=== PATIENT | male | born 1945 | race Caucasian/White ===

== ENCOUNTER 2018-12-17 06:26 | Inpatient (IN) | payer MEDICARE, MEDICAID ==
[~2018-12-17] VITALS: Ht 157.5 cm; Wt 71.7 kg
[2018-12-17] MEDS ORDERED: ACETAMINOPHEN 325MG TABLET PO STA (07:16)
[2018-12-17] MEDS ORDERED: SODIUM CHLORIDE 0.9% 1000ML BAG (SEPSIS BOLUS) IV ONE (07:30)
[2018-12-17 09:41] LABS: BASOPHILS % 0.2 % (0.0-2.0); HEMATOCRIT. 33.7 % (42.0-52.0); HEMOGLOBIN. 11.8 g/dL (14.0-18.0); LYMPHOCYTES % 10.1 % (20.0-50.0); MEAN CORPUSCULAR HEMOGLOBIN 30.9 pg (28.0-32.0); MEAN CORPUSCULAR VOLUME 88.3 fL (80.0-94.0); MEAN PLATELET VOLUME 8.6 fl (7.4-10.4); MONOCYTES % 10.1 % (2.0-8.0); NEUTROPHILS % 79.6 % (40.0-76.0); PLATELET 204 x1000/uL (130-400); RED BLOOD CELL COUNT 3.81 mill/uL (4.7-6.1); RED CELL DISTRIBUTION WIDTH 13.4 % (11.6-14.6)
[2018-12-17 09:47] LABS: CHLORIDE 104 mEq/L (98-107)
[2018-12-17 09:49] LABS: INR 1.1; PROTHROMBIN TIME 11.2 sec (9.6-11.0)
[2018-12-17] MEDS ORDERED: PIPERACILLIN/TAZ 3.375G PREMIX 50 ML IV ONE (10:30)
[2018-12-17] MEDS ORDERED: VANCOMYCIN 1 G PREMIX 200 ML IV ONE (10:30)
[2018-12-17 11:04] LABS: CLARITY URINE CLEAR (CLEAR); COLOR URINE YELLOW (YELLOW); KETONES URINE NEGATIVE (NEGATIVE); LEUKOCYTE ESTERASE URINE 1+ (NEGATIVE); NITRITE URINE NEGATIVE (NEGATIVE); OCCULT BLOOD URINE 1+ (NEGATIVE); PROTEIN URINE 1+ (NEGATIVE); SPECIFIC GRAVITY URINE 1.009 (1.005-1.030)
[2018-12-17 16:28] VITALS: BP 178/88
[2018-12-17] MEDS ORDERED: DEXT 5%/0.45% NACL 1000ML 1,000 ML IV SCH (17:30)
[2018-12-17] MEDS: ACETAMINOPHEN 325MG TABLET PO PRN (17:49)
[2018-12-17 18:38] VITALS: BP 178/88
[2018-12-17] MEDS ORDERED: CIPR500T25 MT (19:10)
[2018-12-17] MEDS ORDERED: BECL10.62 INH (19:10)
[2018-12-17] MEDS ORDERED: PROSOL IH (19:10)
[2018-12-17] MEDS ORDERED: IPRA4AER INH (19:10)
[2018-12-17] MEDS ORDERED: INFLUENZA VIRUS VACCINE(AFLURIA) 0.5ML SYR IM ONE (19:30)
[2018-12-17 20:00] VITALS: BP 113/54
[2018-12-18] VITALS: BP 138/71
[2018-12-18] MEDS ORDERED: ONDANSETRON HCL 4MG/2ML INJ IV PRN (01:30)
[2018-12-18] MEDS ORDERED: MAGNESIUM/ALUMINUM HYDROXIDE/SIMETHICONE 30ML UDC PO PRN (01:30)
[2018-12-18] MEDS ORDERED: ACETAMINOPHEN 325MG TABLET PO PRN (01:30)
[2018-12-18] MEDS ORDERED: IPRATROPIUM/ALBUTEROL 0.5-3(2.5)MG/3ML NEB HHN PRN (01:30)
[2018-12-18] MEDS ORDERED: DIPHENHYDRAMINE 50MG/ML VIAL IV PRN (01:30)
[2018-12-18] MEDS ORDERED: CLONIDINE 0.1MG TABLET PO PRN (01:45)
[2018-12-18] MEDS: SODIUM CHLORIDE 0.9% 1,000 ML IV SCH ×2 (02:05→21:34)
[2018-12-18 04:00] VITALS: BP 152/89
[2018-12-18] MEDS: LEVOFLOXACIN 500MG PREMIX 100 ML IV SCH (04:11)
[2018-12-18] MEDS: ACETAMINOPHEN 325MG TABLET PO PRN ×3 (04:31→17:11)
[2018-12-18 07:29] LABS: BASOPHILS % 0.3 % (0.0-2.0); EOSINOPHILS % 0.1 % (0.0-5.0); HEMATOCRIT. 35.5 % (42.0-52.0); HEMOGLOBIN. 12.4 g/dL (14.0-18.0); LYMPHOCYTES % 8.3 % (20.0-50.0); MEAN CORPUSCULAR HEMOGLOBIN 30.9 pg (28.0-32.0); MEAN CORPUSCULAR VOLUME 88.5 fL (80.0-94.0); MEAN PLATELET VOLUME 9.5 fl (7.4-10.4); NEUTROPHILS % 82.3 % (40.0-76.0); PLATELET 216 x1000/uL (130-400); RED BLOOD CELL COUNT 4.02 mill/uL (4.7-6.1); RED CELL DISTRIBUTION WIDTH 13.2 % (11.6-14.6)
[2018-12-18 07:37] LABS: CHLORIDE 106 mEq/L (98-107)
[2018-12-18 08:00] VITALS: BP 136/76
[2018-12-18] MEDS: GUAIFENESIN 200MG/10ML SUGAR FREE UDC PO PRN ×2 (08:51→17:13)
[2018-12-18] MEDS: FAMOTIDINE 20MG TABLET PO SCH ×2 (08:52→21:33)
[2018-12-18] MEDS: ENOXAPARIN 40MG/0.4ML SYR SUBCUT SCH (08:52)
[2018-12-18 12:00] VITALS: BP 137/67
[2018-12-18 16:00] VITALS: BP 154/87
[2018-12-18] MEDS: TAMSULOSIN HCL 0.4MG SR CAPSULE PO SCH (17:11)
[2018-12-18 20:00] VITALS: BP 123/68
[2018-12-19] VITALS: BP 154/77
[2018-12-19 04:00] VITALS: BP 140/74
[2018-12-19] MEDS: ACETAMINOPHEN 325MG TABLET PO PRN ×2 (04:48→21:54)
[2018-12-19 08:00] VITALS: BP 118/73
[2018-12-19] MEDS: ENOXAPARIN 40MG/0.4ML SYR SUBCUT SCH (08:36)
[2018-12-19] MEDS: LEVOFLOXACIN 500MG PREMIX 100 ML IV SCH (08:40)
[2018-12-19] MEDS: TAMSULOSIN HCL 0.4MG SR CAPSULE PO SCH (08:40)
[2018-12-19] MEDS: FAMOTIDINE 20MG TABLET PO SCH ×2 (08:40→21:53)
[2018-12-19 12:00] VITALS: BP 142/78
[2018-12-19 16:30] VITALS: BP 154/78
[2018-12-19] MEDS: CEFEPIME 1,000 MG in DEXTROSE 5% WATER 50 ML IV SCH (16:59)
[2018-12-19] MEDS: SODIUM CHLORIDE 0.9% 1,000 ML IV SCH (17:00)
[2018-12-19 20:00] VITALS: BP 132/78
[2018-12-20] VITALS: BP 139/72
[2018-12-20 04:00] VITALS: BP 148/86
[2018-12-20] MEDS: CEFEPIME 1,000 MG in DEXTROSE 5% WATER 50 ML IV SCH (05:28)
[2018-12-20] MEDS: SODIUM CHLORIDE 0.9% 1,000 ML IV SCH (05:29)
[2018-12-20 08:00] VITALS: BP 153/78
[2018-12-20] MEDS: FAMOTIDINE 20MG TABLET PO SCH ×2 (09:20→21:26)
[2018-12-20] MEDS: ENOXAPARIN 40MG/0.4ML SYR SUBCUT SCH (09:21)
[2018-12-20] MEDS: ACETAMINOPHEN 325MG TABLET PO PRN ×2 (09:21→21:26)
[2018-12-20] MEDS: TAMSULOSIN HCL 0.4MG SR CAPSULE PO SCH (09:24)
[2018-12-20] MEDS: AMIKACIN 500MG in SODIUM CHLORIDE 0.9% 100ML IV SCH (11:19)
[2018-12-20 20:00] VITALS: BP 142/79
[2018-12-21] VITALS: BP 138/78
[2018-12-21 04:00] VITALS: BP 149/71
[2018-12-21 08:00] VITALS: BP 141/77
[2018-12-21] MEDS: TAMSULOSIN HCL 0.4MG SR CAPSULE PO SCH (08:48)
[2018-12-21] MEDS: FAMOTIDINE 20MG TABLET PO SCH (08:49)
[2018-12-21] MEDS: ENOXAPARIN 40MG/0.4ML SYR SUBCUT SCH (08:49)
[2018-12-21] MEDS: AMIKACIN 500MG in SODIUM CHLORIDE 0.9% 100ML IV SCH (11:23)
[2018-12-21 14:27] LABS: CHLORIDE 108 mEq/L (98-107)
== END 2018-12-21 18:00 | disposition home or self-care (01) | DRG 871 ==
LOC: ER 06:26 → 7WST 10:52 → EDBEDREQTM 10:56 → EDBEDREQSVC 10:56 → EDBEDREQ 10:56 → ENRESERV 14:44
PROVIDERS: ADMIT Internal Medicine; ATTEND Internal Medicine
DX: A41.9 Sepsis, unspecified organism (principal); E43 Unspecified severe protein-calorie malnutrition; N39.0 Urinary tract infection, site not specified; N40.0 Benign prostatic hyperplasia without lower urinary tract symptoms; J45.909 Unspecified asthma, uncomplicated; B96.20 Unspecified Escherichia coli [E. coli] as the cause of diseases classified elsewhere; I10 Essential (primary) hypertension; Z83.3 Family history of diabetes mellitus
CPT/HCPCS: 36415; 71045; 80048; 81003; 83605; 84145; 84484; 87077; 87186; 87804; 90686; 93005; 96365; 99291; J0278; J0692; J1650; J1956; J2543; J3370; J7030; J7050; J7060

== ENCOUNTER → 2019-04-17 | Emergency (ER) | payer MEDICARE, MEDICAID ==
[~2019-04-17] VITALS: Ht 165.1 cm; Wt 75.0 kg
[~2019-04-17] MED LIST: BECL10.62 INH; CEFTRIAXONE SODIUM 1 G/VIAL IM NR; CIPR500T25 MT; IPRA4AER INH; PROSOL IH
[2019-04-17 16:44] LABS: CHLORIDE 108 mEq/L (98-107)
[2019-04-17 17:44] LABS: CLARITY URINE CLOUDY (CLEAR); COLOR URINE DARK YELLOW (YELLOW); KETONES URINE TRACE (NEGATIVE); LEUKOCYTE ESTERASE URINE 3+ (NEGATIVE); NITRITE URINE POSITIVE (NEGATIVE); OCCULT BLOOD URINE 2+ (NEGATIVE); PH URINE 5.5 (4.5-8.0); PROTEIN URINE 1+ (NEGATIVE); SPECIFIC GRAVITY URINE 1.014 (1.005-1.030)
[2019-04-17 19:39] VITALS: BP 129/70
== END | disposition home or self-care (01) ==
LOC: ER 12:40
DX: N39.0 Urinary tract infection, site not specified (principal); R33.9 Retention of urine, unspecified; J45.909 Unspecified asthma, uncomplicated
CPT/HCPCS: 36415; 80053; 81003; 87077; 87086; 87186; 96372; 99285; J0696

== ENCOUNTER 2019-10-11 05:53 | Emergency (ER) | payer MEDICARE, MEDICAID ==
[~2019-10-11] VITALS: Ht 167.6 cm; Wt 87.0 kg
[~2019-10-11 05:53] MED LIST changes: -CEFTRIAXONE SODIUM 1 G/VIAL IM NR
[2019-10-11 07:08] LABS: CLARITY URINE CLEAR (CLEAR); COLOR URINE YELLOW (YELLOW); KETONES URINE NEGATIVE (NEGATIVE); LEUKOCYTE ESTERASE URINE 3+ (NEGATIVE); NITRITE URINE NEGATIVE (NEGATIVE); OCCULT BLOOD URINE TRACE (NEGATIVE); PROTEIN URINE NEGATIVE (NEGATIVE); SPECIFIC GRAVITY URINE 1.007 (1.005-1.030)
[2019-10-11 08:25] VITALS: BP 116/69
== END 2019-10-11 08:33 | disposition home or self-care (01) ==
LOC: ER 06:11
DX: N39.0 Urinary tract infection, site not specified (principal); R33.9 Retention of urine, unspecified; J45.909 Unspecified asthma, uncomplicated; E11.9 Type 2 diabetes mellitus without complications; I10 Essential (primary) hypertension
CPT/HCPCS: 81003; 87077; 87186; 93005; 99284

== ENCOUNTER 2019-12-06 11:34 | Emergency (ER) | payer MEDICARE, MEDICAID ==
[~2019-12-06] VITALS: Ht 172.7 cm; Wt 77.0 kg
[2019-12-06 15:08] LABS: CLARITY URINE CLOUDY (CLEAR); COLOR URINE YELLOW (YELLOW); KETONES URINE NEGATIVE (NEGATIVE); LEUKOCYTE ESTERASE URINE 3+ (NEGATIVE); NITRITE URINE POSITIVE (NEGATIVE); OCCULT BLOOD URINE 1+ (NEGATIVE); PH URINE 5.5 (4.5-8.0); PROTEIN URINE NEGATIVE (NEGATIVE); SPECIFIC GRAVITY URINE 1.009 (1.005-1.030); UROBILINOGEN URINE 0.2 E.U./dL (0.2-1.0)
[2019-12-06] MEDS ORDERED: ACETAMINOPHEN 325MG TABLET PO NR (15:30)
[2019-12-06] MEDS ORDERED: CEPHALEXIN 250MG CAPSULE PO NR (15:30)
[2019-12-06 16:13] VITALS: BP 139/88
[2019-12-06 16:17] LABS: BASOPHILS % 0.4 % (0.0-2.0); EOSINOPHILS % 1.4 % (0.0-5.0); HEMOGLOBIN. 13.7 g/dL (14.0-18.0); LYMPHOCYTES % 15.8 % (20.0-50.0); MEAN CORPUSCULAR HEMOGLOBIN 30.5 pg (28.0-32.0); MEAN CORPUSCULAR VOLUME 88.8 fL (80.0-94.0); MEAN PLATELET VOLUME 8.9 fl (7.4-10.4); MONOCYTES % 6.6 % (2.0-8.0); NEUTROPHILS % 75.8 % (40.0-76.0); PLATELET 242 x1000/uL (130-400); RED BLOOD CELL COUNT 4.51 mill/uL (4.7-6.1); RED CELL DISTRIBUTION WIDTH 13.3 % (11.6-14.6)
[2019-12-06 16:18] LABS: CHLORIDE 112 mEq/L (98-107)
== END 2019-12-06 17:49 | disposition home or self-care (01) ==
LOC: ER 11:34
DX: R33.9 Retention of urine, unspecified (principal); N39.0 Urinary tract infection, site not specified; J45.909 Unspecified asthma, uncomplicated; E11.9 Type 2 diabetes mellitus without complications; I10 Essential (primary) hypertension
CPT/HCPCS: 36415; 51702; 80053; 81003; 85025; 87077; 87186; 99284

== ENCOUNTER 2020-03-25 02:50 | Emergency (ER) | payer OTHER, MEDICAID ==
[~2020-03-25] VITALS: Ht 167.6 cm; Wt 100.0 kg
[2020-03-25 05:47] VITALS: BP 122/76
== END 2020-03-25 05:48 | disposition home or self-care (01) ==
LOC: ER 02:50
DX: N40.1 Benign prostatic hyperplasia with lower urinary tract symptoms (principal); E11.9 Type 2 diabetes mellitus without complications; I10 Essential (primary) hypertension; J45.909 Unspecified asthma, uncomplicated
CPT/HCPCS: 93005; 99283

== ENCOUNTER 2020-05-15 13:23 | Emergency (ER) | payer OTHER, MEDICAID ==
[~2020-05-15] VITALS: Ht 170.2 cm; Wt 82.0 kg
[2020-05-15] MEDS ORDERED: MORPHINE SULFATE 4 MG/ML CPJ (NOT FOR IM USE) IV STA ×2 (13:38→15:22)
[2020-05-15] MEDS ORDERED: ONDANSETRON HCL 4MG/2ML INJ IV STA (15:01)
[2020-05-15] MEDS ORDERED: IPRATROPIUM BROMIDE (0.02%) 0.5MG/2.5ML NEB HHN STA (15:13)
[2020-05-15] MEDS ORDERED: METHYLPREDNISOLONE SOD SUCC 125 MG/2 ML VIAL IV STA (15:13)
[2020-05-15] MEDS ORDERED: ALBUTEROL (0.083%) 2.5MG/3ML NEB HHN STA (15:13)
[2020-05-15] MEDS ORDERED: SODIUM CHLORIDE 0.9% 1,000 ML IV ONE (15:15)
[2020-05-15] MEDS ORDERED: ALBUTEROL (0.083%) 2.5MG/3ML NEB HHN SCH (15:30)
[2020-05-15] MEDS ORDERED: METHYLPREDNISOLONE SOD SUCC 125 MG/2 ML VIAL IV SCH (15:30)
[2020-05-15] MEDS ORDERED: IPRATROPIUM BROMIDE (0.02%) 0.5MG/2.5ML NEB HHN SCH (15:30)
[2020-05-15 15:39] LABS: BASOPHILS % 0.4 % (0.0-2.0); EOSINOPHILS % 4.3 % (0.0-5.0); HEMATOCRIT. 40.3 % (42.0-52.0); HEMOGLOBIN. 13.6 g/dL (14.0-18.0); LYMPHOCYTES % 28.5 % (20.0-50.0); MEAN CORPUSCULAR HEMOGLOBIN 29.7 pg (28.0-32.0); MEAN PLATELET VOLUME 8.5 fl (7.4-10.4); MONOCYTES % 5.8 % (2.0-8.0); PLATELET 316 x1000/uL (130-400); RED BLOOD CELL COUNT 4.58 mill/uL (4.7-6.1); RED CELL DISTRIBUTION WIDTH 13.4 % (11.6-14.6)
[2020-05-15 15:45] LABS: CHLORIDE 108 mEq/L (98-107)
[2020-05-15] MEDS ORDERED: MORPHINE SULFATE 4 MG/ML CPJ (NOT FOR IM USE) IV SCH (15:45)
[2020-05-15] MEDS ORDERED: ONDANSETRON HCL 4MG/2ML INJ IV SCH (15:45)
[2020-05-15 16:06] LABS: CLARITY URINE CLEAR (CLEAR); COLOR URINE YELLOW (YELLOW); KETONES URINE NEGATIVE (NEGATIVE); LEUKOCYTE ESTERASE URINE TRACE (NEGATIVE); NITRITE URINE NEGATIVE (NEGATIVE); OCCULT BLOOD URINE 3+ (NEGATIVE); PROTEIN URINE NEGATIVE (NEGATIVE); SPECIFIC GRAVITY URINE 1.008 (1.005-1.030)
[2020-05-15] MEDS ORDERED: CEFTRIAXONE 1 G PREMIX 50 ML IV ONE (16:30)
[2020-05-15] MEDS ORDERED: CIPR-263 MT (16:47)
[2020-05-15] MEDS ORDERED: P50 MT (16:47)
[2020-05-15] MEDS ORDERED: ALBU18HF2 IH (16:47)
[2020-05-15 18:17] VITALS: BP 140/82
== END 2020-05-15 18:36 | disposition home or self-care (01) ==
LOC: ER 14:00
DX: R33.9 Retention of urine, unspecified (principal); J44.1 Chronic obstructive pulmonary disease with (acute) exacerbation; E11.9 Type 2 diabetes mellitus without complications; I10 Essential (primary) hypertension; Z79.899 Other long term (current) drug therapy; Z98.890 Other specified postprocedural states
CPT/HCPCS: 36415; 51702; 71045; 74176; 80053; 81003; 83690; 85025; 87077; 87086; 87186; 93005; 94644; 96361; 96365; 96375; 99285; J0696; J2270; J2405; J2930; J7030; A4315

== ENCOUNTER 2020-07-11 01:59 | Emergency (ER) | payer OTHER, MEDICAID ==
[~2020-07-11] VITALS: Ht 162.6 cm; Wt 82.0 kg
[~2020-07-11 01:59] MED LIST changes: +ALBU18HF2 IH; +CIPR-263 MT; +P50 MT
[2020-07-11 03:05] LABS: EOSINOPHILS % 10.2 % (0.0-5.0); HEMATOCRIT. 36.9 % (42.0-52.0); HEMOGLOBIN. 12.9 g/dL (14.0-18.0); LYMPHOCYTES % 42.3 % (20.0-50.0); MEAN CORPUSCULAR HEMOGLOBIN 30.7 pg (28.0-32.0); MEAN CORPUSCULAR VOLUME 87.7 fL (80.0-94.0); MEAN PLATELET VOLUME 7.9 fl (7.4-10.4); MONOCYTES % 7.4 % (2.0-8.0); NEUTROPHILS % 39.1 % (40.0-76.0); PLATELET 318 x1000/uL (130-400); RED CELL DISTRIBUTION WIDTH 13.9 % (11.6-14.6)
[2020-07-11 03:06] LABS: CLARITY URINE CLEAR (CLEAR); COLOR URINE YELLOW (YELLOW); KETONES URINE NEGATIVE (NEGATIVE); LEUKOCYTE ESTERASE URINE 1+ (NEGATIVE); NITRITE URINE NEGATIVE (NEGATIVE); OCCULT BLOOD URINE NEGATIVE (NEGATIVE); PROTEIN URINE NEGATIVE (NEGATIVE); SPECIFIC GRAVITY URINE 1.007 (1.005-1.030); UROBILINOGEN URINE 0.2 E.U./dL (0.2-1.0)
[2020-07-11 03:12] LABS: CHLORIDE 110 mEq/L (98-107)
[2020-07-11] MEDS ORDERED: CEPH500C2 MT (04:16)
[2020-07-11 05:10] VITALS: BP 134/79
== END 2020-07-11 06:36 | disposition home or self-care (01) ==
LOC: ER 02:25
DX: R33.9 Retention of urine, unspecified (principal); J45.909 Unspecified asthma, uncomplicated; I10 Essential (primary) hypertension; N40.0 Benign prostatic hyperplasia without lower urinary tract symptoms
CPT/HCPCS: 36415; 51702; 80048; 81003; 85025; 93005; 99284

== ENCOUNTER 2020-08-25 22:48 | Emergency (ER) | payer OTHER, MEDICAID ==
[~2020-08-25] VITALS: Ht 172.7 cm; Wt 82.0 kg
[~2020-08-25 22:48] MED LIST changes: +CEPH500C2 MT
[2020-08-26 00:01] LABS: BASOPHILS % 0.4 % (0.0-2.0); EOSINOPHILS % 2.5 % (0.0-5.0); HEMATOCRIT. 36.8 % (42.0-52.0); HEMOGLOBIN. 12.7 g/dL (14.0-18.0); LYMPHOCYTES % 26.4 % (20.0-50.0); MEAN CORPUSCULAR HEMOGLOBIN 30.3 pg (28.0-32.0); MEAN PLATELET VOLUME 7.9 fl (7.4-10.4); NEUTROPHILS % 60.7 % (40.0-76.0); PLATELET 313 x1000/uL (130-400); RED BLOOD CELL COUNT 4.19 mill/uL (4.7-6.1); RED CELL DISTRIBUTION WIDTH 13.4 % (11.6-14.6)
[2020-08-26 00:02] LABS: CHLORIDE 105 mEq/L (98-107)
[2020-08-26 00:17] LABS: CLARITY URINE CLEAR (CLEAR); COLOR URINE YELLOW (YELLOW); KETONES URINE NEGATIVE (NEGATIVE); LEUKOCYTE ESTERASE URINE 2+ (NEGATIVE); NITRITE URINE POSITIVE (NEGATIVE); OCCULT BLOOD URINE NEGATIVE (NEGATIVE); PH URINE 6.5 (4.5-8.0); PROTEIN URINE NEGATIVE (NEGATIVE); SPECIFIC GRAVITY URINE 1.008 (1.005-1.030)
[2020-08-26 00:29] LABS: *BARBITURATES SCREEN URINE NEGATIVE (NEGATIVE); *BENZODIAZEPINES SCREEN URINE NEGATIVE (NEGATIVE)
[2020-08-26 00:30] LABS: *AMPHETAMINES SCREEN URINE NEGATIVE (NEGATIVE); *COCAINE SCREEN URINE NEGATIVE (NEGATIVE); CANNABINOID URINE SCREEN NEGATIVE (NEGATIVE); METHADONE URINE SCREEN NEGATIVE (NEGATIVE); OPIATES URINE SCREEN NEGATIVE (NEGATIVE); PHENCYCLIDINE URINE SCREEN NEGATIVE (NEGATIVE)
[2020-08-26] MEDS ORDERED: SULF1TAB48 MT (02:11)
[2020-08-26] MEDS ORDERED: SULFAMETHOXAZOLE/TRIMETHOPRIM 800/160MG TABLET PO ONE (02:15)
[2020-08-26 02:45] VITALS: BP 141/83
== END 2020-08-26 03:21 | disposition home or self-care (01) ==
LOC: ER 22:48
DX: N39.0 Urinary tract infection, site not specified (principal); N40.1 Benign prostatic hyperplasia with lower urinary tract symptoms; R33.8 Other retention of urine; E87.6 Hypokalemia; D64.9 Anemia, unspecified; I10 Essential (primary) hypertension; J45.909 Unspecified asthma, uncomplicated; E11.9 Type 2 diabetes mellitus without complications
CPT/HCPCS: 36415; 71045; 80053; 80305; 81003; 83605; 83880; 84484; 85025; 87077; 87186; 99284

== ENCOUNTER 2020-10-12 12:44 | Emergency (ER) | payer OTHER, MEDICAID ==
[~2020-10-12] VITALS: Ht 165.1 cm; Wt 77.1 kg
[~2020-10-12 12:44] MED LIST changes: +SULF1TAB48 MT
[2020-10-12 14:45] VITALS: BP 116/66
== END 2020-10-12 15:06 | disposition home or self-care (01) ==
LOC: ER 12:44
DX: T83.031A Leakage of indwelling urethral catheter, initial encounter (principal); R33.9 Retention of urine, unspecified; N40.0 Benign prostatic hyperplasia without lower urinary tract symptoms; J45.909 Unspecified asthma, uncomplicated; R73.03 Prediabetes; Y83.8 Other surgical procedures as the cause of abnormal reaction of the patient, or of later complication, without mention of misadventure at the time of the procedure; Y92.9 Unspecified place or not applicable
CPT/HCPCS: 51702; 99284

== ENCOUNTER 2021-04-06 19:56 | Emergency (ER) | payer OTHER, MEDICAID ==
[~2021-04-06] VITALS: Ht 165.1 cm; Wt 91.0 kg
[2021-04-06 22:00] LABS: METHADONE URINE SCREEN NEGATIVE (NEGATIVE); OPIATES URINE SCREEN NEGATIVE (NEGATIVE)
[2021-04-06 22:01] LABS: *AMPHETAMINES SCREEN URINE NEGATIVE (NEGATIVE); *BARBITURATES SCREEN URINE NEGATIVE (NEGATIVE); *BENZODIAZEPINES SCREEN URINE NEGATIVE (NEGATIVE); *COCAINE SCREEN URINE NEGATIVE (NEGATIVE); CANNABINOID URINE SCREEN NEGATIVE (NEGATIVE); PHENCYCLIDINE URINE SCREEN NEGATIVE (NEGATIVE)
[2021-04-06 22:10] LABS: BASOPHILS % 0.4 % (0.0-2.0); EOSINOPHILS % 3.3 % (0.0-5.0); HEMATOCRIT. 41.4 % (42.0-52.0); HEMOGLOBIN. 13.9 g/dL (14.0-18.0); LYMPHOCYTES % 28.6 % (20.0-50.0); MEAN CORPUSCULAR HEMOGLOBIN 29.5 pg (28.0-32.0); MEAN CORPUSCULAR VOLUME 87.8 fL (80.0-94.0); MEAN PLATELET VOLUME 7.5 fl (7.4-10.4); MONOCYTES % 8.1 % (2.0-8.0); NEUTROPHILS % 59.6 % (40.0-76.0); PLATELET 252 x1000/uL (130-400); RED BLOOD CELL COUNT 4.71 mill/uL (4.7-6.1); RED CELL DISTRIBUTION WIDTH 16.5 % (11.6-14.6)
[2021-04-06 22:21] LABS: CHLORIDE 106 mEq/L (98-107)
[2021-04-06 22:25] LABS: ETHANOL BLOOD 136 mg/dL
[2021-04-06] MEDS ORDERED: NA PHOS,M-B/NA PHOS,DI-BA ENEMA 118ML PR ONE (22:30)
[2021-04-07] MEDS ORDERED: ALBUTEROL (0.083%) 2.5MG/3ML NEB HHN STA (01:54)
[2021-04-07] MEDS ORDERED: IPRATROPIUM BROMIDE (0.02%) 0.5MG/2.5ML NEB HHN STA (01:54)
[2021-04-07 03:20] VITALS: BP 158/69
== END 2021-04-07 03:29 | disposition home or self-care (01) ==
LOC: ER 19:56
DX: R33.9 Retention of urine, unspecified (principal); K59.00 Constipation, unspecified
CPT/HCPCS: 36415; 71045; 80053; 80305; 80320; 83880; 84484; 85025; 93005; 94640; 99285; G0480

== ENCOUNTER 2021-07-06 08:25 | Inpatient (IN) | payer OTHER, MEDICAID ==
[~2021-07-06] VITALS: Ht 172.7 cm; Wt 77.1 kg
[2021-07-06 10:18] LABS: BASOPHILS % 0.8 % (0.0-2.0); EOSINOPHILS % 4.5 % (0.0-5.0); HEMATOCRIT. 39.6 % (42.0-52.0); HEMOGLOBIN. 13.4 g/dL (14.0-18.0); LYMPHOCYTES % 34.9 % (20.0-50.0); MEAN CORPUSCULAR HEMOGLOBIN 29.2 pg (28.0-32.0); MEAN CORPUSCULAR VOLUME 86.1 fL (80.0-94.0); MEAN PLATELET VOLUME 8.6 fl (7.4-10.4); NEUTROPHILS % 53.8 % (40.0-76.0); PLATELET 262 x1000/uL (130-400); RED CELL DISTRIBUTION WIDTH 15.3 % (11.6-14.6)
[2021-07-06 10:26] LABS: CHLORIDE 109 mEq/L (98-107)
[2021-07-06 10:35] LABS: CLARITY URINE CLEAR (CLEAR); COLOR URINE YELLOW (YELLOW); KETONES URINE NEGATIVE (NEGATIVE); LEUKOCYTE ESTERASE URINE 2+ (NEGATIVE); NITRITE URINE POSITIVE (NEGATIVE); OCCULT BLOOD URINE TRACE (NEGATIVE); PH URINE 6.5 (4.5-8.0); PROTEIN URINE TRACE (NEGATIVE); SPECIFIC GRAVITY URINE 1.015 (1.005-1.030)
[2021-07-06] MEDS ORDERED: ACETAMINOPHEN 325MG TABLET PO ONE (11:15)
[2021-07-06] MEDS ORDERED: CEFTRIAXONE 1 G PREMIX 50 ML IV ONE (12:45)
[2021-07-06] MEDS: DOCUSATE SODIUM 250MG CAPSULE PO SCH (14:52)
[2021-07-06] MEDS ORDERED: MEROPENEM 1,000 MG in SODIUM CHLORIDE 0.9% 100 ML IV SCH (15:00)
[2021-07-06] MEDS ORDERED: ACETAMINOPHEN 325MG TABLET PO PRN (15:15)
[2021-07-06] MEDS: TAMSULOSIN HCL 0.4MG SR CAPSULE PO SCH (15:56)
[2021-07-06] MEDS: AMLODIPINE 10MG TABLET PO SCH (16:15)
[2021-07-06] MEDS ORDERED: PNEUMOCOCCAL 23-VAL P-SAC VAC 0.5 ML IM ONE (18:30)
[2021-07-06 20:00] VITALS: BP_SYST 123; BP_SYST 159; BP_DIAS 82; BP_DIAS 85
[2021-07-06] MEDS ORDERED: INFLUENZA VACCINE 05/PF 0.5 ML SYRINGE IM ONE (20:00)
[2021-07-06] MEDS: GABAPENTIN 300MG CAPSULE PO SCH (20:11)
[2021-07-06 22:00] VITALS: BP 128/77
[2021-07-06] MEDS: MEROPENEM 1,000 MG in SODIUM CHLORIDE 0.9% 100 ML IV SCH (22:50)
[2021-07-07] VITALS (7 sets, daily range): BP systolic 102–144; BP diastolic 72–84
[2021-07-07] MEDS: MEROPENEM 1,000 MG in SODIUM CHLORIDE 0.9% 100 ML IV SCH ×2 (05:15→14:27)
[2021-07-07] MEDS: DOCUSATE SODIUM 250MG CAPSULE PO SCH (08:47)
[2021-07-07] MEDS: AMLODIPINE 10MG TABLET PO SCH (08:47)
[2021-07-07] MEDS: GABAPENTIN 300MG CAPSULE PO SCH ×2 (08:48→14:27)
[2021-07-07] MEDS: TAMSULOSIN HCL 0.4MG SR CAPSULE PO SCH (08:48)
[2021-07-07] MEDS ORDERED: NITR-87 MT (14:41)
== END 2021-07-07 16:38 | disposition home or self-care (01) | DRG 690 ==
LOC: ER 08:40 → 8WST 13:41 → EDBEDREQTM 14:15 → EDBEDREQ 14:15 → CANRESERV 15:01 → ENRESERV 15:01
PROVIDERS: ADMIT Internal Medicine; ATTEND Internal Medicine
DX: N39.0 Urinary tract infection, site not specified (principal); E87.8 Other disorders of electrolyte and fluid balance, not elsewhere classified; I10 Essential (primary) hypertension; J45.909 Unspecified asthma, uncomplicated; N40.0 Benign prostatic hyperplasia without lower urinary tract symptoms; Z79.899 Other long term (current) drug therapy; Z79.2 Long term (current) use of antibiotics; Z86.19 Personal history of other infectious and parasitic diseases; Z82.49 Family history of ischemic heart disease and other diseases of the circulatory system
CPT/HCPCS: 36415; 71045; 80048; 80076; 81003; 83880; 84484; 85025; 87077; 87186; 93005; 99285; J0696; J2185; J7050; A4315

== ENCOUNTER 2021-11-19 02:23 | Emergency (ER) | payer OTHER, MEDICAID ==
[~2021-11-19] VITALS: Ht 162.6 cm; Wt 70.0 kg
[~2021-11-19 02:23] MED LIST changes: +NITR-87 MT
[2021-11-19 04:01] LABS: CLARITY URINE CLEAR (CLEAR); COLOR URINE YELLOW (YELLOW); KETONES URINE NEGATIVE (NEGATIVE); LEUKOCYTE ESTERASE URINE 3+ (NEGATIVE); NITRITE URINE POSITIVE (NEGATIVE); OCCULT BLOOD URINE 3+ (NEGATIVE); PROTEIN URINE 1+ (NEGATIVE); SPECIFIC GRAVITY URINE 1.007 (1.005-1.030); UROBILINOGEN URINE 0.2 E.U./dL (0.2-1.0)
[2021-11-19 04:14] LABS: BASOPHILS % 1.3 % (0.0-2.0); EOSINOPHILS % 3.7 % (0.0-5.0); HEMOGLOBIN. 13.7 g/dL (14.0-18.0); LYMPHOCYTES % 24.5 % (20.0-50.0); MEAN CORPUSCULAR HEMOGLOBIN 30.5 pg (28.0-32.0); MEAN CORPUSCULAR VOLUME 91.2 fL (80.0-94.0); MEAN PLATELET VOLUME 9.3 fl (7.4-10.4); MONOCYTES % 7.6 % (2.0-8.0); NEUTROPHILS % 62.9 % (40.0-76.0); PLATELET 303 x1000/uL (130-400); RED CELL DISTRIBUTION WIDTH 14.5 % (11.6-14.6)
[2021-11-19 04:22] LABS: CHLORIDE 106 mEq/L (98-107)
[2021-11-19] MEDS ORDERED: CEPH500C2 MT (04:35)
[2021-11-19 05:00] VITALS: BP 126/62
== END 2021-11-19 06:10 | disposition home or self-care (01) ==
LOC: ER 02:37
DX: N39.0 Urinary tract infection, site not specified (principal); R33.9 Retention of urine, unspecified; J45.909 Unspecified asthma, uncomplicated; I10 Essential (primary) hypertension; N40.0 Benign prostatic hyperplasia without lower urinary tract symptoms
CPT/HCPCS: 36415; 80053; 81003; 85025; 87077; 87186; 99283

== ENCOUNTER 2023-10-27 03:10 | Emergency (ER) | payer MEDICARE, MEDICAID ==
[~2023-10-27] VITALS: Ht 172.7 cm; Wt 87.0 kg
[~2023-10-27 03:10] MED LIST changes: +ALBU5SOL18 IH; -PROSOL IH
[2023-10-27 03:12] VITALS: O2SAT 99
[2023-10-27] MEDS ORDERED: TAMS-11 MT (04:52)
[2023-10-27 07:06] VITALS: TEMP 36.22512
[2023-10-27 10:30] VITALS: BP 116/52; PULSE 77; RESP 15; O2SAT 98
== END 2023-10-27 11:00 | disposition home or self-care (01) ==
LOC: ER 03:10
DX: R33.9 Retention of urine, unspecified (principal); J45.909 Unspecified asthma, uncomplicated; I10 Essential (primary) hypertension; Z79.899 Other long term (current) drug therapy; Z86.73 Personal history of transient ischemic attack (TIA), and cerebral infarction without residual deficits; Z98.890 Other specified postprocedural states
CPT/HCPCS: 51702; 99285